=== PATIENT | female | born 1940 | race Caucasian/White ===

== ENCOUNTER 2021-12-16 06:12 | Inpatient (IN) ==
[2021-12-16] MEDS ORDERED: CeFAZolin Syr 2,000MG/20 ML 2,000 MG/20 ML SYRINGE IVPB ONE (06:36)
[2021-12-16] MEDS ORDERED: Vancomycin 1,250 MG/262.5 ML IV.SOLN IVPB ONE ×2 (06:36→20:00)
[2021-12-16] MEDS ORDERED: Ringers Solution, Lactated 1,000 ML IVC SCH (06:45)
[2021-12-16] MEDS ORDERED: *HR* Propofol 200 MG/20 ML VIAL IVP ONE (06:52)
[2021-12-16] MEDS ORDERED: *HR* FentaNYL (PF) 100 MCG/2 ML VIAL ONE ×3 (06:52→10:37)
[2021-12-16] MEDS ORDERED: Ondansetron 4 MG/2 ML VIAL ONE (06:54)
[2021-12-16] MEDS ORDERED: Lidocaine -MPF 2% 5 ML VIAL ONE (06:54)
[2021-12-16] MEDS ORDERED: *HR* Rocuronium Bromide 50 MG/5 ML VIAL ONE ×2 (06:54→09:15)
[2021-12-16] MEDS ORDERED: Sugammadex Sodium 200 MG/2 ML VIAL IV ONE (06:54)
[2021-12-16] MEDS ORDERED: *HR* Heparin 5,000 UNIT/ML VIAL ONE (06:55)
[2021-12-16] MEDS ORDERED: *HR* Vasopressin 20 UNIT/ML VIAL ONE (07:06)
[2021-12-16] MEDS ORDERED: NiCARdipine 2.5 MG/10 ML Syringe IVPB ONE (07:06)
[2021-12-16] MEDS ORDERED: Acetaminophen IV 1,000 MG/100 ML BAG IVPB ONE (07:10)
[2021-12-16] MEDS ORDERED: Protamine Sulfate 50 MG/5 ML VIAL IVP ONE (07:20)
[2021-12-16] MEDS ORDERED: Bupivacaine-MPF 0.25% 10 ML VIAL ONE (07:20)
[2021-12-16] MEDS ORDERED: Iopamidol - 300 100 ML INFUS..BTL ONE (07:21)
[2021-12-16] MEDS ORDERED: Heparin 1,000 UNITS/500 mL 1,500 ML ONE (07:21)
[2021-12-16] MEDS ORDERED: Vancomycin 1,000 MG VIAL ONE (07:21)
[2021-12-16] MEDS ORDERED: Vancomycin 1,000 MG, Sodium Chloride IRRigation 1,000 ML IR ONE (07:45)
[2021-12-16] MEDS ORDERED: *HR* FentaNYL (PF) 100 MCG/2 ML VIAL IVP PRN (07:48)
[2021-12-16] MEDS ORDERED: Ondansetron 4 MG/2 ML VIAL IVP PRN ×2 (07:48→12:11)
[2021-12-16] MEDS ORDERED: *HR* Phenylephrine 10 MG/ML VIAL ONE (09:26)
[2021-12-16] MEDS ORDERED: *HR* Labetalol 20 MG/4 ML SYRINGE IVP ONE (11:06)
[2021-12-16] MEDS ORDERED: *HR* Labetalol 20 MG/4 ML SYRINGE IVP PRN (12:11)
[2021-12-16] MEDS ORDERED: Naloxone 0.4 MG/ML INJ IVP PRN (12:11)
[2021-12-16] MEDS ORDERED: *HR* OxyCODONE Immed Rel 5 MG TABLET PO PRN (12:11)
[2021-12-16] MEDS ORDERED: Acetaminophen 325 MG TABLET PO PRN (12:11)
[2021-12-16] MEDS: 0.9 % Sodium Chloride 1,000 ML IVC SCH (12:49)
[2021-12-16] MEDS: *HR* OxyCODONE/APAP 5/325 TABLET PO PRN ×2 (12:49→21:28)
[2021-12-16] MEDS: *HR* Metoprolol 5 MG/5 ML VIAL IVP SCH ×3 (12:50→23:41)
[2021-12-16] MEDS: CeFAZolin 2 GM/120 ML BAG IVPB SCH ×2 (16:44→23:41)
[2021-12-17] MEDS: 0.9 % Sodium Chloride 1,000 ML IVC SCH (04:37)
[2021-12-17] MEDS: *HR* OxyCODONE/APAP 5/325 TABLET PO PRN (04:40)
[2021-12-17 05:43] LABS: Basophils % 0.2 %; Eosinophils % 0.2 %; Hematocrit 35.1 % (35.3-44.9); Hemoglobin 11.2 g/dL (11.5-15.4); Immature Granulocytes % 0.2 % (0-4); Lymphocytes # 1.2 K/mcL (0.6-4.6); Lymphocytes % 14.2 %; Mean Corpuscular HGB Conc 31.9 g/dL (31.6-35.5); Mean Corpuscular Hemoglobin 30.9 pg (28.0-33.3); Mean Platelet Volume 11.2 fL (9.4-12.4); Monocytes # 0.8 K/mcL (0.0-1.3); Monocytes % 9.8 %; Neutrophils # 6.4 K/mcL (1.6-8.9); Platelet Count 181 K/mcL (140-400); Red Blood Count 3.62 M/mcL (3.82-4.97); Red Cell Distribution Width 14.3 % (11.5-14.5); Segmented Neutrophils % 75.4 %; White Blood Count 8.5 K/mcL (4.3-11.1)
[2021-12-17 05:54] LABS: Potassium 3.8 mEq/L (3.5-5.1)
[2021-12-17] MEDS ORDERED: *HR* Heparin 5,000 UNIT/ML VIAL SQ SCH ×2 (06:00)
[2021-12-17] MEDS: *HR* Metoprolol 5 MG/5 ML VIAL IVP SCH (06:11)
[2021-12-17 07:40] VITALS: TEMP 98.1
[2021-12-17] MEDS ORDERED: Cholecalciferol (D-3) 1,000 UNIT (25MCG) TABLET PO SCH (09:00)
[2021-12-17] MEDS ORDERED: lisinopriL 10 MG TABLET PO SCH (09:00)
[2021-12-17] MEDS ORDERED: Multivit/Ca/Min/Fe/FA 1 TAB TABLET PO SCH (09:00)
[2021-12-17] MEDS ORDERED: Vitamin B Complex/Vit C/Vit E 1 EACH TABLET PO SCH (09:00)
[2021-12-17 10:46] VITALS: BP 122/59; PULSE 75; O2SAT 94
== END 2021-12-17 12:07 | disposition home or self-care (01) | DRG 269 ==
LOC: SAMDAY 06:12 → 2NNU 12:05
PROVIDERS: ADMIT Surgery; ATTEND Surgery